=== PATIENT | female | born 1930 | race Caucasian/White ===

== ENCOUNTER → 2017-03-17 19:11 | Outpatient (CLI) | payer MEDICARE, BC | END | disposition home or self-care (01) | LOC: D.LABREF 19:11 | DX: J32.9 Chronic sinusitis, unspecified (principal) ==

== ENCOUNTER 2017-05-04 05:59 | Day surgery (SDC) | payer MEDICARE, BC ==
[2017-05-04] MEDS ORDERED: ISOSORBIDE MONO30 M1 PO (06:38)
[2017-05-04] MEDS ORDERED: HYDROCHLOROTHIA25 MG PO (06:39)
[2017-05-04] MEDS ORDERED: ZOCOR20 MG PO (06:39)
[2017-05-04] MEDS ORDERED: BAYER CHEWABLE81 MG PO (06:39)
[2017-05-04] MEDS ORDERED: TRAZODONE HCL50 MG PO (06:40)
[2017-05-04] MEDS ORDERED: LOTREL 5/20 MG1 CAP (06:41)
[2017-05-04] MEDS ORDERED: MOBIC7.5 MG PO (06:41)
[2017-05-04] MEDS ORDERED: NAMENDA10 MG PO (06:42)
[2017-05-04] MEDS ORDERED: ZYRTEC10 MG PO (06:47)
[2017-05-04] MEDS ORDERED: NEURONTIN 300300 MG PO (06:48)
[2017-05-04] MEDS ORDERED: MELATONIN10 M1 PO (06:49)
[2017-05-04] MEDS ORDERED: K-TAB10 MEQ PO (06:50)
[2017-05-04] MEDS ORDERED: FUROSEMIDE20 MG PO (06:51)
[2017-05-04] MEDS ORDERED: BUPROPION HCL150 M1 PO (06:51)
[2017-05-04] MEDS ORDERED: ARICEPT5 MG PO (06:52)
[2017-05-04 07:02] VITALS: BP 123/50; BMI 27.1
[2017-05-04 07:06] LABS: BASOPHILS 0.2 % (0-2); EOSINOPHILS 0.8 % (0-7); HEMATOCRIT 39.1 % (36.0-48.0); IMMATURE GRANULOCYTES 0.7 % (0-5); LYMPHOCYTES 8.1 % (15-50); MCH 29.9 pg (26.0-34.0); MCHC 33.2 g/dL (31.0-37.0); MCV 89.9 fL (80.0-100.0); MEAN PLATELET VOLUME 9.3 fL (7.4-10.4); MONOCYTES 8.5 % (2-11); NEUTROPHILS 81.7 % (40-80); PLATELET COUNT 331 10x3/uL (130-400); RBC 4.35 10x6/uL (4.00-5.40); RDW 13.1 % (11.5-14.5); WBC 18.1 10x3/uL (4.8-10.8)
[2017-05-04 07:26] LABS: ANION GAP 9.9 mmol/L (8-16); CALCIUM 9.7 mg/dL (8.5-10.1); CARBON DIOXIDE 31.4 mmol/L (21.0-32.0); CREATININE - SERUM 1.2 mg/dL (0.6-1.3); POTASSIUM - SERUM 3.3 mmol/L (3.5-5.1)
--- NOTE | 2017-05-04 12:51 | HP ---
PATIENT: LAURO PATRICIO MEDICAL RECORD: [id number] ACCOUNT: [id number] LOCATION:[facility] : 32 ADMISSION DATE: 05/04/17 HISTORY AND PHYSICAL EXAMINATION HISTORY OF PRESENT ILLNESS: Ms. Patricio has a history of chronic sinusitis, possibly fungal sinusitis with surgery mostly on the left side a few years ago in 2013. She presented with chronic right-sided sinusitis refractory to medical management. 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 She is being admitted for right middle meatal antrostomy, right sphenoidotomy, right ethmoidectomy, and left frontal sinusotomy. PAST MEDICAL HISTORY: Includes hypertension, coronary artery disease, hypothyroidism. PAST SURGICAL HISTORY: Includes sinus surgery in 2013, cardiac stent in 2012, cataract surgery in 2012, hysterectomy in 1975, thyroidectomy in 1984, and a in 1965. CURRENT MEDICATIONS: Include Imdur, simvastatin, aspirin, hydrochlorothiazide, trazodone, Lotrel, Wellbutrin, Neurontin, Aricept. ALLERGIES: SULFA AND CEPHALEXIN. PHYSICAL EXAMINATION: GENERAL: She is a healthy appearing, pretty good historian, developmentally normal. FACE: Normal, symmetric, no lesions. EYES: Sclerae and conjunctivae are normal. EARS: Canals and TMs are normal. NOSE: No masses, polyps, or drainage. ORAL CAVITY AND OROPHARYNX: Tongue protrudes in midline. Pharynx is normal. NECK: No masses, no adenopathy. CHEST: Clear. CARDIOVASCULAR: Regular rate and rhythm, no murmur. DIAGNOSTIC STUDIES: CT shows diffuse, mostly right-sided sinusitis, right maxillary, frontal and sphenoid sinuses have air-fluid levels. Left side is mostly clear with some frontal sinus disease. IMPRESSION: Chronic sinusitis, mostly right-sided, possibly allergic fungal sinusitis. She will be admitted for right middle meatal antrostomy, right frontal sinusotomy, right ethmoidectomy, right sphenoidotomy, and left frontal sinusotomy. TRANSINT:[id number] Voice Confirmation ID: [id number] DOCUMENT ID: [id number] HISTORY AND PHYSICAL [id number] LAURO PATRICIO JINA LACY MD at 1252 CC: [id number] DICTATION DATE: 04/30/17 1327 ACCESS CLERK: 04/30/17 1359 [facility] [address] [facility] [id number]
--- NOTE | 2017-05-04 12:51 | OP ---
PATIENT NAME: LAURO PATRICIO MEDICAL RECORD: [id number] :34 LOCATION:[facility] ADMISSION DATE: SURGEON: JINA LACY MD DATE OF OPERATION: 05/04/2017 PREOPERATIVE DIAGNOSIS: Chronic pansinusitis. POSTOPERATIVE DIAGNOSIS: Chronic pansinusitis. PROCEDURES: Right middle meatal antrostomy, right total ethmoidectomy, right frontal sinusotomy, right sphenoidotomy and left frontal sinusotomy. SURGEON: Jina Lacy MD ANESTHESIA: General orotracheal. BLOOD LOSS: Less than 5 cc. SPECIMENS: Tissue from the right middle meatus and purulence from the right maxillary sinus and right ethmoids for culture. PACKING: None. COMPLICATIONS: None. DISPOSITION: Recovery stable. DESCRIPTION OF PROCEDURE: Ms. Patricio was brought to the operating room and placed in the supine position. She was sedated and intubated by anesthesia. The table was turned 90 degrees. A head drape was applied and she was positioned for sinus surgery. Using a headlight and nasal speculum, both sides of the nose were examined. The right side was examined first. She had some post-surgical changes, portion of the anterior middle turbinate on the right side was missing, but the root of the middle turbinate remnant was injected as well as the lateral nasal wall, inferior turbinate, floor of the nose and septum with a total of 1 cc of 1% lidocaine with 1:100,000 epinephrine. The left side was also injected just basically the base of the middle turbinate anteriorly with about 0.25 cc of 1% lidocaine with 1:100,000 epinephrine. Then, 3 Afrin pledgets were placed on the right side and 2 on the left. Then, she was positioned, prepped and draped in usual fashion for sinus surgery while waiting for decongestion. Then, using a 0-degree scope, all the Afrin pledgets were removed from both sides of the nose. Left side was addressed first. There was a large synechia between the middle turbinate and the lateral nasal wall and this was divided with a sharp end of a Gladstone and the middle turbinate was gently medialized. A long thin curved olive-tip suction was inserted into the frontal duct just behind the root of the anterior attachment of the middle turbinate. The duct was easy to palpate and placed to suction up in there. There really, the tract was open and there seemed to be some edematous tissue in there, but there really was no purulence. The right side was then addressed. There have been a significant removal of the middle turbinate anteriorly previously, but the root was still there and all the anatomy was still clearly visible. The middle turbinate posteriorly was medialized a little bit with a Gladstone. Gladstone was used to divide some granulation tissue and some material covering the uncinate with a sharp end of the Gladstone that was removed and sent as a specimen for pathology. Just on a little palpation of the lateral nasal wall, there was OPERATIVE REPORT [id number] LAURO PATRICIO purulence coming from the middle meatus. Cultures were obtained of this. Then, a backbiter was used to open up the maxillary sinus ostium and curved olive-tip suction was inserted with a Luki trap. It was basically completely full of thick yellow purulence. The sinus was evacuated. Then, a microdebrider was used to clean up the maxillary ostium in the middle meatus and then 30-degree scope was inserted and used to evaluate the sinus. There was really no solid tissue, fungal hyphae, or anything that looked like a fungal sinusitis. Another curved olive-tip suction was inserted just to evacuate the purulence at the dependent portion of the sinus posteriorly. The mucosa was reddish, slightly granular but not very thick edema at all. The entire sinus mucosa had that red granular, but thin mucosal appearance. Once that was done, the microdebrider was used to enter the ethmoid cavity inferiorly medially. There had obviously been some at least partial ethmoidectomy previously, it was very easy to take down all the bony septations and proceed posteriorly to the posterior ethmoid. Again, just copious purulence was encountered in the entire cavity. There was papa bullosa with purulence in the posterior aspect of the middle turbinate that was evacuated as well. Then, posteriorly, the middle turbinate was lateralized with a Gladstone. The superior turbinate was visualized and a seventh suction was inserted into the sphenoid sinus. There was some purulence in there as well. The sphenoid ostium was patent. There really was not any significant edematous tissue in front of that openings, really nothing, no tissue needed to be removed there. Then, the frontal sinus again was, using a long curved olive-tip suction, inserted up into the frontal duct and immediately on entering the frontal sinus, copious purulence was evacuated from there as well. The duct was clean and easy to manipulate with a curved olive-tip suction all the way up into the frontal sinus. There was a plenty room to move it around, but obviously it had been obstructed by some edematous tissue. Once that was completed, curved olive-tip suction and straight suctions with a 30-cc syringe were used to irrigate all the sinuses repeatedly with saline and then suctioned repeatedly. There really was not much bleeding at all during the case. The counts were correct. All the Afrin pledgets were removed. Everything was examined again with the scope. All the mucosal surfaces in the sinuses were clean. Curved olive-tip suction was used to put some mupirocin in the ethmoid cavity and the maxillary sinus on the right side. Eye exam was normal. She was awakened, extubated, and transported to recovery in good condition. No complications. TRANSINT:[id number] Voice Confirmation ID: [id number] DOCUMENT ID: [id number] JINA LACY MD at 1251 CC: [id number] DICTATION DATE: 05/04/17 1032 STEAM SHOVEL ENGINEER: 05/04/17 1226 [facility] [address] [place] [address]
[2017-05-05 15:22] LABS: AFB SPECIMEN PROCESSING Concentration (())
[2017-05-06 13:16] LABS: FUNGUS STAIN Final report (())
[2017-05-15 16:13] LABS: AEROBE ID Final report (())
[2017-06-01 08:09] LABS: FUNGUS MYCOLOGY CULTURE Final report (())
[2017-06-26 10:18] LABS: ACID FAST CULTURE Negative (()); ACID FAST SMEAR Negative (())
== END 2017-05-04 13:25 | disposition home or self-care (01) ==
LOC: D.OPS 05:59 → D.PAN 07:30 → D.OPS 07:45
PROVIDERS: Otolaryngology
DX: J32.4 Chronic pansinusitis (principal); I10 Essential (primary) hypertension; I25.10 Atherosclerotic heart disease of native coronary artery without angina pectoris; E03.9 Hypothyroidism, unspecified; Z95.5 Presence of coronary angioplasty implant and graft; Z79.82 Long term (current) use of aspirin; Z79.899 Other long term (current) drug therapy; Z88.1 Allergy status to other antibiotic agents; Z88.2 Allergy status to sulfonamides; Z01.812 Encounter for preprocedural laboratory examination